=== PATIENT | male | born 1945 | race Caucasian/White ===

== ENCOUNTER 2023-11-16 07:29 | Emergency (ER) | payer MEDICARE, MEDICAID ==
[2023-11-16 08:11] LABS: #Basophils 0.1 thou/uL (0.0-0.2); #Eosinphils 0.5 thou/uL (0.0-0.7); #Lymphocytes 1.8 thou/uL (1.20-3.40); #Monocytes 0.8 thou/uL (0.11-0.59); #Neutrophils 5.1 thou/uL (1.40-6.50); %Basophils 1.1 % (0.0-1.0); %Eosinophils 5.9 % (0.0-10.0); %Lymphocytes 21.5 % (21.0-51.0); %Monocytes 9.2 % (0.0-10.0); %Neutrophils 62.4 % (42.0-75.0); Hematocrit 37.2 % (42.0-52.0); Hemoglobin 12.4 g/dL (14.0-18.0); Mean Corpuscular HGB CONC 33.2 g/dL (32.0-36.0); Mean Corpuscular Hemoglobin 30.3 pg (27.0-31.0); Mean Corpuscular Volume 91.3 fl (78.0-98.0); Mean Platelet Volume 5.6 fL (7.4-10.4); Platelet Count 319 10x3/uL (130-400); Red Blood Cell (RBC) Count 4.08 mill/uL (4.70-6.10); White Blood Cell (WBC) Count 8.2 10x3/uL (4.8-10.8)
[2023-11-16 08:18] LABS: Bilirubin Negative (Negative); Blood, Urine Negative (Negative); Glucose, Urine (Dipstick) Negative (Negative); Ketone, Urine Negative (Negative); Leukocyte Large (Negative); Nitrite Negative (Negative); Protein, Urine (Dipstick) 100 mg/dL (Neg-Trace); Urobilinogen 0.2 mg/dL (Less than 2)
[2023-11-16 08:21] LABS: Bilirubin Negative (Negative); Blood, Urine Moderate (Negative); Glucose, Urine (Dipstick) Negative (Negative); Ketone, Urine Negative (Negative); Leukocyte Large (Negative); Nitrite Negative (Negative); Protein, Urine (Dipstick) 100 mg/dL (Neg-Trace); Urobilinogen 0.2 mg/dL (Less than 2)
[2023-11-16 08:22] LABS: Clarity Cloudy (Clear); Clarity Hazy (Clear); pH, Urine Greater/Equal 9.0 (5.0-9.0)
[2023-11-16 08:27] LABS: Bacteria/HPF 4+ HPF (None Seen); CAUTI Indications for Culture Alt mental st,lethar; RBC/HPF 0-3 HPF (0-3); Squamous Epithelial 0-3 HPF (0-3); Triple Phosphate Crystal 2+ HPF (None Seen)
[2023-11-16 08:28] LABS: Urine Culture Reflex No No
[2023-11-16 08:28] LABS: Troponin I Less than 0.010 ng/mL (< 0.028)
[2023-11-16 08:31] LABS: ALT (SGPT) 12 U/L (8-55); AST (SGOT) 12 U/L (5-34); Alkaline Phosphatase 135 U/L (40-110); Anion Gap 15 mmol/L (10-20); BUN (Urea Nitrogen) 32 mg/dL (8.4-25.7); Bilirubin, Total 0.3 mg/dL (0.2-1.2); Calc. Creatinine Clearance 0 mL/min (70-130); Calcium 9.2 mg/dL (7.8-10.44); Carbon Dioxide 26 mmol/L (23-31); Chloride 102 mmol/L (98-107); Estimated GFR 38; Glucose 141 mg/dL (83-110); Sodium 139 mmol/L (136-145)
[2023-11-16 08:31] LABS: Bacteria/HPF 3+ HPF (None Seen); CAUTI Indications for Culture Alt mental st,lethar; Squamous Epithelial 0-3 HPF (0-3); Triple Phosphate Crystal 2+ HPF (None Seen)
== END 2023-11-16 11:13 ==
LOC: BURERS 07:29
DX: R41.0 Disorientation, unspecified (principal); R93.0 Abnormal findings on diagnostic imaging of skull and head, not elsewhere classified; I10 Essential (primary) hypertension; Z79.82 Long term (current) use of aspirin; Z79.899 Other long term (current) drug therapy
CPT/HCPCS: 36415; 70450; 71045; 80053; 81001; 83735; 84484; 85025; 93005; 94760

== ENCOUNTER 2025-01-06 16:12 | Emergency (ER) | payer MEDICARE, MEDICAID ==
[2025-01-06 16:41] LABS: Glucose, Urine (Dipstick) Negative (Negative); Leukocyte Small (Negative); Protein, Urine (Dipstick) 100 mg/dL (Neg-Trace); Specific Gravity, Urine 1.015 (1.005-1.030)
[2025-01-06 16:53] LABS: Bacteria/HPF 4+ HPF (None Seen); CAUTI Indications for Culture Pelvic or flank pain
[2025-01-06 16:54] LABS: Yeast-Hyphae Rare HPF (None Seen)
[2025-01-06 16:58] LABS: Urine Culture Reflex Yes Yes
[2025-01-06 17:37] LABS: Hematocrit 34.0 % (42.0-52.0); Hemoglobin 12.1 g/dL (14.0-18.0); Mean Corpuscular Hemoglobin 31.2 pg (27.0-31.0); Mean Corpuscular Volume 87.3 fl (78.0-98.0); Platelet Count 374 10x3/uL (130-400); Red Blood Cell (RBC) Count 3.89 mill/uL (4.70-6.10); White Blood Cell (WBC) Count 11.7 10x3/uL (4.8-10.8)
[2025-01-06 17:51] LABS: ALT (SGPT) 12 U/L (Less than 45); AST (SGOT) 15 U/L (11-34); Albumin 3.4 g/dL (3.1-4.5); Alkaline Phosphatase 157 U/L (40-110); Anion Gap 17 mmol/L (10-20); BUN (Urea Nitrogen) 28 mg/dL (8.4-25.7); Bilirubin, Total 0.2 mg/dL (0.3-1.2); Calc. Creatinine Clearance 0 mL/min (70-130); Calcium 9.2 mg/dL (7.8-10.44); Carbon Dioxide 27 mmol/L (23-31); Chloride 103 mmol/L (98-107); Globulin 3.7 g/dL (2.4-3.5); Glucose 163 mg/dL (83-110); MDiff Complete? YES; Potassium 4.1 mmol/L (3.5-5.1); Sodium 143 mmol/L (136-145)
[2025-01-06] MEDS ORDERED: Sulfameth/Trimethoprim DS 800-160mg TAB ONE (19:32)
== END 2025-01-06 20:26 ==
LOC: BURERS 16:12
DX: N39.0 Urinary tract infection, site not specified (principal); I12.9 Hypertensive chronic kidney disease with stage 1 through stage 4 chronic kidney disease, or unspecified chronic kidney disease; N18.9 Chronic kidney disease, unspecified; Z46.6 Encounter for fitting and adjustment of urinary device; I48.91 Unspecified atrial fibrillation; Z86.73 Personal history of transient ischemic attack (TIA), and cerebral infarction without residual deficits; Z79.82 Long term (current) use of aspirin; Z79.01 Long term (current) use of anticoagulants; Z79.899 Other long term (current) drug therapy
CPT/HCPCS: 36415; 80053; 81001; 85025; 87077; 87086; 87186; 99284